=== PATIENT | male | born 1985 | race Caucasian/White ===

== ENCOUNTER 2021-07-25 18:36 | Emergency (ER) | payer OTHER ==
[2021-07-25 19:48] LABS: BASOPHIL 0.9 % (0-2); EOSINOPHIL 0.4 % (0-5); HCT 46.8 % (42.0-52.0); HGB 16.9 g/dl (13.2-18.0); LYMPHOCYTE 30.2 % (15-48); MCH 33.4 pg (25.0-31.0); MCHC 36.1 g/dL (32.0-36.0); MCV 92.5 fL (78.0-100.0); MONOCYTE 5.5 % (0-12); MPV 9.1 fL (6.0-9.5); NEUTROPHIL 62.6 % (41-80); NRBC 0; PLT 267 K/uL (150-400); RBC 5.06 M/uL (4.70-6.00); RDW 11.9 % (11.5-14.0); WBC 5.5 K/uL (4.0-10.5)
[2021-07-25 20:07] LABS: ALBUMIN 3.8 g/dL (3.4-5.0); BILIRUBIN - TOTAL 0.4 mg/dL (0.2-1.0); BUN/CREAT RATIO (CALC) 19.6 RATIO; CREATININE 0.97 mg/dL (0.67-1.17); GLOBULIN (CALCULATION) 4.1 g/dL; TOTAL PROTEIN 7.9 g/dL (6.4-8.2)
[2021-07-25 20:45] LABS: AMPHETAMINES NEGATIVE (NEGATIVE); BARBITURATES NEGATIVE (NEGATIVE); ECSTASY (MDMA) NEGATIVE (NEGATIVE); MARIJUANA (THC) POSITIVE (NEGATIVE); METHADONE NEGATIVE (NEGATIVE); OPIATES NEGATIVE (NEGATIVE); OXYCODONE NEGATIVE (NEGATIVE)
== END 2021-07-26 09:52 | disposition home or self-care (01) ==
LOC: FER 18:36
PROVIDERS: Emergency Medicine
DX: F10.239 Alcohol dependence with withdrawal, unspecified (principal); I10 Essential (primary) hypertension; F17.200 Nicotine dependence, unspecified, uncomplicated; Z20.822 Contact with and (suspected) exposure to COVID-19; Y90.8 Blood alcohol level of 240 mg/100 ml or more
CPT/HCPCS: 36415; 80053; 80305; 85025; 99284; G0480; J2560; J7030; U0002